=== PATIENT | male | born 1995 ===

== ENCOUNTER 2017-09-21 05:25 | Emergency (ER) | payer BC ==
[2017-09-21] MEDS ORDERED: Aspirin Low Dose CHEW TAB* 81 MG PO ONE (06:03)
[2017-09-21 06:21] LABS: Hematocrit 47 % (42-52); Hemoglobin 16.5 g/dl (14.0-18.0); Mean Corpuscular HGB Conc 35 g/dl (31-36); Mean Corpuscular Hemoglobin 33 pg (27-31); Mean Corpuscular Volume 94 fL (80-94); Mean Platelet Volume 8 um3 (7.4-10.4); Red Blood Count 5.06 10^6/ul (4.0-5.4); Red Cell Distribution Width 14 % (10.5-15); White Blood Count 8.1 10^3/ul (3.5-10.8)
[2017-09-21 06:42] LABS: Albumin 4.6 g/dL (3.2-5.2); BUN/Creatinine Ratio 9.9 (8-20); Calcium 9.3 mg/dL (8.6-10.3); EGFR Non-African American 104.2 (>60); Globulin 2.5 g/dL (2-4); Magnesium 1.9 mg/dL (1.9-2.7); Potassium 3.4 mmol/L (3.5-5.0); Total Bilirubin 1.2 mg/dL (0.2-1.0); Total Protein 7.1 g/dL (6.4-8.9)
--- NOTE | 2017-09-21 07:05 | ED ---
Deanna Adkins Alfonso, scribed for Ronald Ross MD on 09/21/17 at 0606 . HPI Chest Pain - HPI Summary HPI Summary: This patient is a 21 year old M presenting to [facility] with a chief complaint of one hour of left-sided CP earlier tonight. He has never had this pain in the past. The patient rates the pain 3/10 in severity. Symptoms aggravated by nothing. Symptoms alleviated by spontaneous resolution. Patient reports SOB ( one month), RUE numbness, and LUE soreness. He reports cocaine use last week, during which he did not experience any CP. - History of Current Complaint Chief Complaint: EDChestPainROMI Hx Obtained From: Patient Onset/Duration: Started Hours Ago, Resolved Timing: Constant, Lasting Hours - 1 Current Severity: Mild Pain Intensity: 3 Pain Scale Used: 0-10 Numeric Chest Pain Location: Discrete at: - Left Chest Pain Radiates: Yes Chest Pain Radiates To:: Arm Aggravating Factor(s): Nothing Alleviating Factor(s): Spontaneous Resolution Associated Signs and Symptoms: Positive: Other: - SOB (one month), RUE numbness , and LUE soreness. - Allergy/Home Medications Allergies/Adverse Reactions: Allergies Allergy/AdvReac Type Severity Reaction Status Date / Time No Known Allergies Allergy Verified 09/21/17 05:28 PMH/Surg Hx/FS Hx/Imm Hx Cardiovascular History: Reports: Hx Hypertension Opthamlomology History: Denies: Hx Legally Blind EENT History: Denies: Hx Deafness - Surgical History Surgery Procedure, Year, and Place: Achilles surgery Infectious Disease History: No Infectious Disease History: Denies: Traveled Outside the [place] in Last 30 Days - Family History Known Family History: Negative: Cardiac Disease - Social History Alcohol Use: Weekly Hx Substance Use: Yes Substance Use Type: Reports: Cocaine, Prescribed Hx Tobacco Use: Yes Smoking Status (MU): Current Some Day Smoker Review of Systems Negative: Fever Positive: Chest Pain Positive: Shortness Of Breath Positive: Other - LUE soreness Positive: Numbness - RUE All Other Systems Reviewed And Are Negative: Yes Physical Exam - Summary Physical Exam Summary: Appearance: Well-appearing, Well-nourished Skin: Warm Eyes: Normal ENT: Normal Neck: Supple, nontender Respiratory: Clear to auscultation Cardiovascular: Normal, Good distal pulses Abdomen: Soft, nontender Bowel: Present Musculoskeletal: Strength/ROM Intact Neurological: Normal, A&Ox3 Psychiatric: Normal Triage Information Reviewed: Yes Vital Signs On Initial Exam: Initial Vitals Temp Pulse Resp BP Pulse Ox 97.7 F 83 16 144/86 99 09/21/17 05:28 09/21/17 05:28 09/21/17 05:28 09/21/17 05:28 09/21/17 05:28 Vital Signs Reviewed: Yes - [place] Coma Scale Coma Scale Total: 15 Diagnostics - Vital Signs Vital Signs Temp Pulse Resp BP Pulse Ox 09/21/17 05:48 76 97 09/21/17 05:46 138/79 09/21/17 05:28 97.7 F 83 16 144/86 99 - Laboratory Lab Results: Lab Results 09/21/17 09/21/17 09/21/17 Range/Units 06:05 06:05 06:05 WBC 8.1 (3.5-10.8) 10^3/ul RBC 5.06 (4.0-5.4) 10^6/ul Hgb 16.5 (14.0-18.0) g/dl Hct 47 (42-52) % MCV 94 (80-94) fL MCH 33 H (27-31) pg MCHC 35 (31-36) g/dl RDW 14 (10.5-15) % Plt Count 282 (150-450) 10^3/ul MPV 8 (7.4-10.4) um3 Neut % (Auto) 55.5 (38-83) % Lymph % (Auto) 29.4 (25-47) % [place] % (Auto) 10.5 H (1-9) % Eos % (Auto) 4.0 (0-6) % Baso % (Auto) 0.6 (0-2) % Absolute Neuts (auto) 4.5 (1.5-7.7) 10^3/ul Absolute Lymphs (auto) 2.4 (1.0-4.8) 10^3/ul Absolute Monos (auto) 0.9 H (0-0.8) 10^3/ul Absolute Eos (auto) 0.3 (0-0.6) 10^3/ul Absolute Basos (auto) 0 (0-0.2) 10^3/ul Absolute Nucleated RBC 0.01 10^3/ul Nucleated RBC % 0.1 INR (Anticoag Therapy) 0.96 (0.89-1.11) APTT 26.2 (26.0-36.3) seconds Sodium 135 (133-145) mmol/L Potassium 3.4 L (3.5-5.0) mmol/L Chloride 103 (101-111) mmol/L Carbon Dioxide 22 (22-32) mmol/L Anion Gap 10 (2-11) mmol/L BUN 9 (6-24) mg/dL Creatinine 0.91 (0.67-1.17) mg/dL Est GFR ( Amer) 134.0 (>60) Est GFR (Non-Af Amer) 104.2 (>60) BUN/Creatinine Ratio 9.9 (8-20) Glucose 97 (70-100) mg/dL Calcium 9.3 (8.6-10.3) mg/dL Magnesium 1.9 (1.9-2.7) mg/dL Total Bilirubin 1.20 H (0.2-1.0) mg/dL AST 24 (13-39) U/L ALT 24 (7-52) U/L Alkaline Phosphatase 48 (34-104) U/L Troponin I 0.00 (<0.04) ng/mL Total Protein 7.1 (6.4-8.9) g/dL Albumin 4.6 (3.2-5.2) g/dL Globulin 2.5 (2-4) g/dL Albumin/Globulin Ratio 1.8 (1-3) Result Diagrams: 09/21/17 06:05 09/21/17 06:05 Lab Statement: Any lab studies that have been ordered have been reviewed, and results considered in the medical decision making process. - Radiology CXR Radiology Interpretation Completed By: ED Physician - No acute pathology., Radiologist - Pending official interpretation from radiologist. See [facility]. - EKG 0536 Cardiac Rate: NL EKG Rhythm: Sinus Rhythm - BPM 72 EKG Interpretation: subtle anterior STEMI algorithm by Nelson Et al. suggestive of early repol Chest Pain Course/Dx - Course Course Of Treatment: labs, ekg, and xr neg for any acute pathology, instructed to fu the [facility] pmd. agrees to and understands dc instructions. - Diagnoses Provider Diagnoses: Chest pain Discharge - Discharge Plan Condition: Improved Disposition: HOME Patient Education Materials: Chest Pain (ED), Hypertension (ED) Referrals: Linda Chanel [Primary Care Provider] - Additional Instructions: 1. PLEASE MAKE AN APPOINTMENT FIRST THING IN THE MORNING TO BE SEEN BY YOUR PRIMARY CARE DOCTOR WITHIN 1 WEEK 2. PLEASE RETURN IMMEDIATELY TO THE ER IF YOU HAVE ANY WORSENING OR CONCERNING SYMPTOMS The documentation as recorded by the Deanna silverman Alfonso accurately reflects the service I personally performed and the decisions made by me, Ronald Ross MD.
[2017-09-21 07:25] VITALS: BP 138/78
--- NOTE | 2017-09-21 09:02 | RAD ---
INDICATION: Chest pain COMPARISON: None. TECHNIQUE: Single AP portable view of the chest was obtained. FINDINGS: Image quality is compromised due to the relative inferiority of a portable chest x-ray. The heart and mediastinum exhibit normal size and contour. The lungs are grossly clear. There is no evidence of a large pleural effusion. Visualized bones are normal for the patient's age. IMPRESSION: No radiographic evidence for acute cardiopulmonary abnormality on this portable chest x-ray.
== END 2017-09-21 07:26 | disposition home or self-care (01) ==
LOC: ED 05:25
DX: R07.9 Chest pain, unspecified (principal); R06.02 Shortness of breath; Z72.0 Tobacco use
CPT/HCPCS: 36415; 71010; 80053; 83735; 84484; 85025; 85610; 85730; 93005; 99282; A9270-GY